=== PATIENT | female | born 2000 | race Caucasian/White ===

== ENCOUNTER 2018-12-15 10:47 | Emergency (ER) | payer MEDICAID ==
[2018-12-15 11:19] VITALS: BMI 18.3
[2018-12-15 11:29] VITALS: TEMP 97.5; O2SAT 100
[2018-12-15] MEDS ORDERED: Morphine 2 mg/ml ISec IVP STA (11:52)
--- NOTE | 2018-12-15 12:10 | ED PDOC ---
Arrival/HPI - General Chief Complaint: Abdominal Pain Time Seen by Provider: 12/15/18 11:39 Historian: Patient - History of Present Illness Narrative History of Present Illness (Text): 12/15/18 12:03 18 y/o f with a pmh of appendectomy reports with cc of abdominal pain since this morning. Patient reports she is currently on her period and that her current abdominal pain is not usually this bad while on her period. Patient reports that she is not currently sexually active. Patient recalls taking ibuprofen this morning for her pain but did not cause any relief. Patient also complains of chest pain. Patient denies any fevers, chills, headache, dizziness, shortness of breath, dyspnea on exertion, cough, diaphoresis, nausea, vomiting, diarrhea, or any other complaint. Time/Duration: Prior to Arrival Symptom Onset: Sudden Symptom Course: Unchanged Activities at Onset: Light Context: Home Past Medical History - Provider Review Nursing Documentation Reviewed: Yes - Psychiatric Hx Substance Use: No - Surgical History Hx Appendectomy: Yes - Anesthesia Hx Anesthesia: Yes Family/Social History - Physician Review Nursing Documentation Reviewed: Yes Family/Social History: Unknown Family HX Smoking Status: Never Smoked Hx Alcohol Use: No Hx Substance Use: No Allergies/Home Meds Allergies/Adverse Reactions: Allergies No Known Allergies Allergy (Verified 12/15/18 11:51) Review of Systems - Physician Review All systems were reviewed & negative as marked: Yes - Review of Systems Constitutional: Normal Eyes: Normal ENT: Normal Respiratory: Normal Cardiovascular: Chest Pain Gastrointestinal: Abdominal Pain. absent: Diarrhea, Nausea, Vomiting Genitourinary Female: Normal Musculoskeletal: Normal Skin: Normal Neurological: Normal. absent: Headache Endocrine: Normal Hemo/Lymphatic: Normal Psychiatric: Normal Physical Exam Vital Signs Reviewed: Yes Vital Signs Temp Pulse Resp BP Pulse Ox 12/15/18 11:19 97.5 F L 100 H 16 121/66 100 Temperature: Afebrile Blood Pressure: Normal Pulse: Tachycardic Respiratory Rate: Normal Appearance: Positive for: Well-Appearing, Non-Toxic, Comfortable Pain Distress: Mild Mental Status: Positive for: Alert and Oriented X 3 - Systems Exam Head: Present: Atraumatic, Normocephalic Pupils: Present: PERRL Extroacular Muscles: Present: EOMI Conjunctiva: Present: Normal Mouth: Present: Moist Mucous Membranes Neck: Present: Normal Range of Motion Respiratory/Chest: Present: Clear to Auscultation, Good Air Exchange. No: Respiratory Distress, Accessory Muscle Use Cardiovascular: Present: Regular Rate and Rhythm, Normal S1, S2. No: Murmurs Abdomen: Present: Tenderness (RLQ tenderness). No: Distention, Peritoneal Signs Back: Present: Normal Inspection Upper Extremity: Present: Normal Inspection. No: Cyanosis, Edema Lower Extremity: Present: Normal Inspection. No: Edema Neurological: Present: GCS=15, Speech Normal Skin: Present: Warm, Dry, Normal Color. No: Rashes Psychiatric: Present: Alert, Oriented x 3, Normal Insight, Normal Concentration Medical Decision Making ED Course and Treatment: 12/15/18 12:11 Impression: 18 y/o f presents with cc of abdominal pain since this morning Differential Diagnosis included but are not limited to: Ovarian Torsion Plan: -- Labs -- Morphine -- Transvaginal US -- Reassess and disposition Prior Visits: Notes and results from previous visits were reviewed. Progress Notes: 12/15/18 14:13 Talked to patient who says her pain has resolved. labs are unremarkable. Will discharge home with parents. - RAD Interpretation Narrative RAD Interpretations (Text): 12/15/18 11:52 Pelvis Ultrasound Unremarkable pelvic ultrasound. No evidence of ovarian torsion Radiology Orders: 12/15/18 11:52 TRANSVAGINAL [US] Stat Slurry Worker: Radiologist - Medication Orders Current Medication Orders: Discontinued Medications Morphine Sulfate (Morphine) 2 mg IVP STAT STA Stop: 12/15/18 11:53 - Scribe Statement The provider has reviewed the documentation as recorded by the Mack Varela All medical record entries made by the Scribwilliam were at my direction and personally dictated by me. I have reviewed the chart and agree that the record accurately reflects my personal performance of the history, physical exam, medical decision making, and the department course for this patient. I have also personally directed, reviewed, and agree with the discharge instructions and disposition. Disposition/Present on Arrival - Present on Arrival History of DVT/PE: No History of Uncontrolled Diabetes: No Urinary Catheter: No History of Decub. Ulcer: No History Surgical Site Infection Following: None - Disposition Diagnosis: Dysmenorrhea Disposition: HOME/ ROUTINE Condition: IMPROVED Discharge Instructions (ExitCare): Menstrual Cramps (DC) Additional Instructions: Take motrin for pain and follow up with your pcp Prescriptions: Ibuprofen [Motrin] 600 mg PO Q6 #20 tab Referrals: Kwadwo Caruso MD [Primary Care Provider] - Follow up with primary Forms: [employer] (M[place]ian), SCHOOL NOTE
[2018-12-15 13:04] LABS: BASO # 0.01 K/mm3 (0.0-2.0); BASO % 0.1 % (0.0-3.0); EOS % 0.3 % (1.5-5.0); HEMOGLOBIN 12.3 g/dL (12.0-16.0); LYMPH # 1.1 (1.2-3.4); LYMPH % 15.8 % (22.0-35.0); MEAN CELL VOLUME 85.9 fl (80.0-105.0); MEAN CORPUSCULAR HGB CONC 32.6 g/dl (31.0-37.0); MEAN PLATELET VOLUME 10.5 fl (7.0-11.0); MONO # 0.5 (0.1-0.6); MONO % 6.6 % (1.0-6.0); RBC 4.39 10^6/uL (3.5-6.1); RED CELL DISTRIBUTION WIDTH 14.1 % (11.5-14.5); WHITE BLOOD COUNT 7.1 10^3/uL (4.5-11.0)
[2018-12-15 13:18] LABS: INR 1.08; PARTIAL THROMBOPLASTIN TIME 32.1 Seconds (26.9-38.3); PROTHROMBIN TIME 12.2 SECONDS (9.4-12.5)
--- NOTE | 2018-12-15 13:36 | US ---
Date of service: 12/15/2018 HISTORY: r/o torsion COMPARISON: None available. TECHNIQUE: Transabdominal FINDINGS: UTERUS: Measures 7.1 x 3.2 x 5.2 cm. Normal in size and appearance. No fibroid or other mass lesion seen. ENDOMETRIUM: Measures 2 mm in diameter. Unremarkable. CERVIX: No cervical abnormality identified. RIGHT OVARY: Measures 3.0 x 1.6 x 3.4 cm. No solid mass. Normal flow. LEFT OVARY: Measures 4.3 x 1.4 x 3.9 cm. No solid mass. Normal flow. FREE FLUID: No significant free fluid noted. OTHER FINDINGS: None. IMPRESSION: Unremarkable pelvic ultrasound. No evidence of ovarian torsion.
[2018-12-15 13:58] LABS: ALB/GLOB RATIO 1.2 (1.1-1.8); ALBUMIN 4.1 g/dL (3.0-4.8); ALT/SGPT 30 U/L (7-56); AST/SGOT 26 U/L (14-36); BLOOD UREA NITROGEN 7 mg/dL (7-21); CALCIUM 9.3 mg/dL (8.4-10.5); GFR NON-AFRICAN AMERICAN > 60
[2018-12-15 14:15] VITALS: BP 118/71; PULSE 89; RESP 18
== END 2018-12-15 14:41 | disposition home or self-care (01) ==
LOC: ED 10:47
DX: N94.6 Dysmenorrhea, unspecified (principal)